=== PATIENT | female | born 1940 | race African-American/Black ===

== ENCOUNTER 2018-04-25 11:15 | Emergency (ER) | payer BC, OTHER ==
[2018-04-25 11:45] VITALS: BP 159/76; PULSE 70; TEMP 98.8; BMI 27.4
--- NOTE | 2018-04-25 13:04 | PDOC ---
History of Present Illness - General Chief Complaint: Injury Stated Complaint: FALL Time Seen by Provider: 04/25/18 11:47 - History of Present Illness Initial Comments: 37-year-old female with a past medical history significant for diabetes hypertension and dyslipidemia presents for evaluation after a mechanical fall while walking up the steps at home. She states she hit the right side of her face on the corner of the step. She denies headache nausea or vomiting visual changes or dizziness since her injury. There was no LOC. She has mild right- sided facial pain where she hit her face. 04/25/18 13:00 04/25/18 13:01 Past History - Past Medical History Allergies/Adverse Reactions: Allergies Allergy/AdvReac Type Severity Reaction Status Date / Time No Known Allergies Allergy Verified 04/25/18 11:39 COPD: No Diabetes: Yes HTN: Yes Hypercholesterolemia: Yes - Suicide/Smoking/Psychosocial Hx Smoking History: Never smoked Have you smoked in the past 12 months: No Information on smoking cessation initiated: No Hx Alcohol Use: No Drug/Substance Use Hx: No Substance Use Type: None Review of Systems - Review of Systems All Other Systems: Reviewed and Negative *Physical Exam - Vital Signs Last Vital Signs Temp Pulse Resp BP Pulse Ox 98.8 F 70 16 159/76 100 04/25/18 11:39 04/25/18 11:39 04/25/18 11:39 04/25/18 11:39 04/25/18 11:39 - Physical Exam Comments: GENERAL: The patient is awake, alert, and fully oriented, in no acute distress. HEAD: Normal with right sided ecchymosis depression purple with swelling about the area of the is zygomatic arch and periorbital area EYES: Pupils equal, round and reactive to light, extraocular movements intact, sclera anicteric, conjunctiva clear. ENT: Ears normal, nares patent, oropharynx clear without exudates. Moist mucous membranes. NECK: Normal range of motion, supple without lymphadenopathy, JVD, or masses. LUNGS: Breath sounds equal, clear to auscultation bilaterally. No wheezes, and no crackles. HEART: Regular rate and rhythm, normal S1 and S2 without murmur, rub or gallop. ABDOMEN: Soft, nontender, normoactive bowel sounds. No guarding, no rebound. No masses. EXTREMITIES: Normal range of motion, no edema. No clubbing or cyanosis. No cords, erythema, or tenderness. NEUROLOGICAL: Cranial nerves II through XII grossly intact. Normal speech, normal gait. PSYCH: Normal mood, normal affect. SKIN: Warm, Dry, normal turgor, no rashes or lesions noted. 04/25/18 13:02 ED Treatment Course - RADIOLOGY Radiology Studies Ordered: Category Date Time Status FACIAL BONES CT W/O CONTRAST [CT] Stat CT Scan 04/25/18 11:[address] WITHOUT CONTRAST [CT] Stat CT Scan 04/25/18 11:57 Completed Medical Decision Making - Medical Decision Making Scans are negative this is a facial contusion she may follow-up with the primary care physician for further evaluation and treatment options that should resolve on its own 04/25/18 13:02 *DC/Admit/Observation/Transfer Diagnosis at time of Disposition: Closed head injury - Discharge Dispostion Disposition: HOME Condition at time of disposition: Stable Decision to Admit order: No - Referrals Referrals: Trisha Mcintyre MD [Primary Care Provider] - - Patient Instructions Printed Discharge Instructions: DI for Closed Head Injury Additional Instructions: Return to the emergency room should he develop any symptoms such as nausea vomiting or headache. You may apply ice to the area decreased the swelling 20 minutes at a time 3-5 times a day. Take Tylenol for pain should you needed. Follow-up with your primary care physician in one to 2 days for further evaluation and treatment options. Your scans today Were normal. - Post Discharge Activity
== END 2018-04-25 13:06 | disposition home or self-care (01) ==
LOC: JERFT 11:15
DX: S00.83XA Contusion of other part of head, initial encounter (principal); W10.8XXA Fall (on) (from) other stairs and steps, initial encounter; Y93.89 Activity, other specified; Y92.038 Other place in apartment as the place of occurrence of the external cause; Y99.8 Other external cause status; I10 Essential (primary) hypertension; E78.00 Pure hypercholesterolemia, unspecified; E11.9 Type 2 diabetes mellitus without complications
CPT/HCPCS: 70450-TC; 70486-TC; 99281-25

== ENCOUNTER 2019-03-18 09:22 | Day surgery (SDC) | payer BC, OTHER ==
[2019-03-17 14:59] VITALS: BMI 26.3
[2019-03-18 11:36] VITALS: TEMP 97.9
[2019-03-18 12:44] VITALS: BP 153/85; PULSE 68
[2019-03-18 12:49] LABS: BASO % 0.5 % (0-2.0); EOS % 0.2 % (0-4.5); HEMATOCRIT 36.9 % (32.4-45.2); LYMPH % 30.4 % (8-40); MCH 29.9 pg (25.7-33.7); MCHC 32.4 g/dl (32.0-36.0); MEAN PLT VOLUME 9.6 fl (7.5-11.1); MONO % 6.5 % (3.8-10.2); NEUT % 62.4 % (42.8-82.8); RDW 14.2 % (11.6-15.6); RETICULOCYTES 1.03 % (0.5-1.5); WHITE BLOOD COUNT 4.9 K/mm3 (4.0-10.0)
[2019-03-18 13:53] LABS: PLATELET COUNT 141 K/MM3 (134-434)
[2019-03-18 13:56] LABS: ALBUMIN 4.1 g/dl (3.4-5.0); ALK PHOS 85 U/L (45-117); ANION GAP 10 MMOL/L (8-16); BILIRUBIN,TOTAL 0.8 mg/dL (0.2-1); BLOOD UREA NITROGEN 10 mg/dL (7-18); CALCIUM 9.6 mg/dL (8.5-10.1); CHLORIDE 104 mmol/L (98-107); CO2 28 mmol/L (21-32); CREATININE 0.8 mg/dL (0.55-1.3); GLUCOSE,RANDOM 249 mg/dL (74-106); POTASSIUM 4.3 mmol/L (3.5-5.1); SGOT/AST 26 U/L (15-37); SGPT/ALT 32 U/L (13-61); SODIUM 142 mmol/L (136-145); TOT PROT 8.8 g/dl (6.4-8.2)
[2019-03-19 08:06] LABS: SERUM IRON SATURATION 32 % (15-55); TOTAL IRON BINDING CAPACITY 275 ug/dL (250-450); UIBC 187 ug/dL (118-369)
[2019-03-19 16:11] LABS: TRANSGLUTAMINASE IGA < 2 U/mL (0-3); TRANSGLUTAMINASE IGG < 2 U/mL (0-5)
--- NOTE | 2019-03-21 11:17 | PATH ---
Surgical Pathology Report Patient Name: ENRIQUE BUSTAMANTE [facility]. Rec. #: [id number] /Age/Gender: 1940 (Age: 78) / F Account: [id number] Location: U-ENDOSCOPY Taken: 03/18/2019 Received: 03/18/2019 Reported: 03/21/2019 Physicians: Peg Boogie M.D. Specimen(s) Received A: 2ND PORTION DUODENUM AND BULB B: BX ANTRUM Clinical History Weight loss, anemia, occult GI bleed Postoperative diagnosis: Hiatal hernia, atrophic gastritis, colon diverticuli Final Diagnosis A. DUODENUM, SECOND PORTION AND BULB, BIOPSY: DUODENAL MUCOSA WITH NO PATHOLOGIC CHANGES. NO HISTOLOGIC EVIDENCE OF GLUTEN SENSITIVE ENTEROPATHY (CELIAC SPRUE) IDENTIFIED. B. STOMACH, ANTRUM, BIOPSY: GASTRIC ANTRAL MUCOSA WITH FOCAL MILD CHRONIC GASTRITIS AND MILD REACTIVE GASTROPATHY, AND GASTRIC FUNDIC MUCOSA WITH NO PATHOLOGIC CHANGES. IMMUNOSTAIN FOR H. PYLORI IS NEGATIVE. Electronically Signed Manjinder Tafoya M.D. Gross Description A. Received in formalin, labeled "biopsy second portion of duodenum and bulb" are 4 velasquez, irregular portions of soft tissue ranging from 0.2-0.3 cm. in greatest dimension. The specimens are submitted in toto in one cassette. B. Received in formalin, labeled "biopsy antrum" are 3 velasquez, irregular portions of soft tissue ranging from 0.2-0.3 cm. in greatest dimension. The specimens are submitted in toto in one cassette. 03/18/2019 saudi03/18/2019
== END 2019-03-18 12:41 | disposition home or self-care (01) ==
LOC: JASU-ENDO 09:22
PROVIDERS: ATTEND Internal Medicine Gastroenterology
PROC: 0DB68ZX Excision of Stomach, Via Natural or Artificial Opening Endoscopic, Diagnostic (ICD-10-PCS; 2019-03-18)
PROC: 0DJD8ZZ Inspection of Lower Intestinal Tract, Via Natural or Artificial Opening Endoscopic (ICD-10-PCS; principal; 2019-03-18 10:15)
DX: Z12.11 Encounter for screening for malignant neoplasm of colon (principal); D64.9 Anemia, unspecified; K57.30 Diverticulosis of large intestine without perforation or abscess without bleeding; K64.8 Other hemorrhoids; K44.9 Diaphragmatic hernia without obstruction or gangrene; E11.9 Type 2 diabetes mellitus without complications
CPT/HCPCS: 43239; G0121; 36415; 80053; 82150; 82607; 82728; 82746; 83516; 83540; 83550; 83690; 84155; 84165; 85025; 85044; 86140; 88305-TC; 88342-TC